=== PATIENT | female | born 1960 | race American Indian/Alaskan Native ===

== ENCOUNTER 2017-10-09 17:15 | Emergency (ER) | payer BC, OTHER ==
[2017-10-09 18:22] LABS: Hematocrit 38.5 % (30.3-42.9); Hemoglobin 12.6 gm/dl (10.1-14.3); Mean Corpuscular HGB Conc 33 % (30-34); Mean Corpuscular Hemoglobin 30 pg (28-32); Mean Corpuscular Volume 91 fl (79-97); Platelet Count 157 K/mm3 (140-440); Red Blood Count 4.23 M/mm3 (3.65-5.03); Red Cell Distribution Width 13.8 % (13.2-15.2); White Blood Count 4.5 K/mm3 (4.5-11.0)
[2017-10-09 18:36] LABS: Anion Gap 16 mmol/L; BUN/Creatinine Ratio 19; Blood Urea Nitrogen 13 mg/dL (7-17); Calcium 9.2 mg/dL (8.4-10.2); Carbon Dioxide 25 mmol/L (22-30); Chloride 103.3 mmol/L (98-107); Glucose 92 mg/dL (65-100); Sodium 140 mmol/L (137-145)
[2017-10-09 19:00] LABS: Bilirubin,Urine NEG (Negative); Blood,Urine NEG (Negative); Ketones,Urine NEG (Negative); Leukocyte Esterase,Urine NEG (Negative); Nitrite,Urine NEG (Negative); Protein,Urine <15 mg/dL mg/dL (Negative); Urobilinogen,Urine < 2.0 mg/dL (<2.0)
[2017-10-10 03:15] VITALS: BP 165/96
== END 2017-10-10 05:06 | disposition left against medical advice (07) ==
LOC: ED 17:15
DX: R42 Dizziness and giddiness (principal); Z53.21 Procedure and treatment not carried out due to patient leaving prior to being seen by health care provider
CPT/HCPCS: 36415; 80048; 81001; 84484; 85027; 93005; 93010

== ENCOUNTER 2017-10-10 09:00 | Inpatient (IN) | payer OTHER ==
[2017-10-10 10:56] LABS: Basophils % (Auto) 0.3 % (0.0-1.8); Eosinophils % (Auto) 1.9 % (0.0-4.3); Hematocrit 40.8 % (30.3-42.9); Hemoglobin 13.4 gm/dl (10.1-14.3); Mean Corpuscular HGB Conc 33 % (30-34); Mean Corpuscular Hemoglobin 31 pg (28-32); Mean Corpuscular Volume 94 fl (79-97); Platelet Count 144 K/mm3 (140-440); Red Blood Count 4.36 M/mm3 (3.65-5.03); White Blood Count 4.2 K/mm3 (4.5-11.0)
[2017-10-10 11:10] LABS: Anion Gap 18 mmol/L; BUN/Creatinine Ratio 15; Blood Urea Nitrogen 9 mg/dL (7-17); Carbon Dioxide 23 mmol/L (22-30); Chloride 105.5 mmol/L (98-107); Glucose 79 mg/dL (65-100); Potassium 3.9 mmol/L (3.6-5.0); Sodium 143 mmol/L (137-145)
[2017-10-10] MEDS ORDERED: NITRO-BID 2% TP ONE (13:27)
[2017-10-10] MEDS ORDERED: ASPIRIN PO ONE (13:28)
--- NOTE | 2017-10-10 13:53 | XRay Report ---
AP CHEST: HISTORY: chest pain AP view of the chest demonstrates a normal mediastinal and cardiac contour with clear lungs and normal bony and soft tissue structures. IMPRESSION: Unremarkable AP chest.
--- NOTE | 2017-10-10 13:57 | Emergency Department Report ---
HPI - General Chief Complaint: Chest Pain Time Seen by Provider: 10/10/17 13:11 - HPI HPI: Room 6 The patient is a 57-year-old female presented with a chief complaint of palpitations and chest discomfort. The patient states for one week she's had intermittent palpitations associated with chest discomfort, dizziness and shortness of breath. The patient states palpitations last seconds and then resolves. Patient denies nausea/vomiting or diaphoresis. Patient states she does get dizzy when the palpitations occur. Patient denies any other types of pain. Patient states her last stress test recurred one or 2 years ago but she has never had a cardiac catheterization Location: Chest Duration: Times one week Quality: Discomfort/palpitation Severity: Moderate Modifying factors: [see above] Context: [see above] Mode of transportation: [not driving] ED Past Medical Hx - Past Medical History Previous Medical History?: No - Surgical History Past Surgical History?: Yes Additional Surgical History: - Family History Family history: no significant - Social History Smoking Status: Never Smoker Substance Use Type: None (denies illicit drug use), Alcohol (occasional) ED Review of Systems ROS: Stated complaint: CHEST PAIN Other details as noted in HPI Constitutional: denies: diaphoresis Eyes: denies: eye pain ENT: denies: ear pain Respiratory: shortness of breath Cardiovascular: chest pain, palpitations Gastrointestinal: denies: abdominal pain, nausea, vomiting Genitourinary: denies: dysuria Musculoskeletal: denies: back pain Neurological: other (dizziness) Physical Exam - Physical Exam Vital Signs: Vital Signs 10/10/17 09:31 Temperature 97.9 F Pulse Rate 64 Respiratory 18 Rate Blood Pressure 150/87 O2 Sat by Pulse 100 Oximetry Physical Exam: GENERAL: The patient is well-developed well-nourished female lying on stretcher not appearing to be in acute distress. [] HEENT: Normocephalic. Atraumatic. Extraocular motions are intact. Patient has moist mucous membranes. NECK: Supple. Trachea midline CHEST/LUNGS: Clear to auscultation. There is no respiratory distress noted. HEART/CARDIOVASCULAR: Regular. There is no tachycardia. There is no gallop rub or murmur. ABDOMEN: Abdomen is soft, nontender. Patient has normal bowel sounds. There is no abdominal distention. SKIN: There is no rash. There is no edema. There is no diaphoresis. NEURO: The patient is awake, alert, and oriented. The patient is cooperative. The patient has normal speech MUSCULOSKELETAL: There is no evidence of acute injury. ED Course Vital Signs 10/10/17 09:31 Temperature 97.9 F Pulse Rate 64 Respiratory 18 Rate Blood Pressure 150/87 O2 Sat by Pulse 100 Oximetry ED Medical Decision Making - Lab Data Result diagrams: 10/10/17 10:26 10/10/17 10:26 Laboratory Tests 10/10/17 10/10/17 10:26 10:26 WBC 4.2 L RBC 4.36 Hgb 13.4 Hct 40.8 MCV 94 MCH 31 MCHC 33 RDW 14.0 Plt Count 144 Lymph % (Auto) 33.6 [place] % (Auto) 11.6 H Eos % (Auto) 1.9 Baso % (Auto) 0.3 Lymph # 1.4 [place] # 0.5 Eos # 0.1 Baso # 0.0 Seg Neutrophils % 52.6 Seg Neutrophils # 2.2 Sodium 143 Potassium 3.9 Chloride 105.5 Carbon Dioxide 23 Anion Gap 18 BUN 9 Creatinine 0.6 L Estimated GFR > 60 BUN/Creatinine Ratio 15 Glucose 79 Calcium 9.0 Troponin T < 0.010 - EKG Data -: EKG Interpreted by Me EKG shows normal: sinus rhythm Rate: normal - EKG Data When compared to previous EKG there are: no significant change Interpretation: unchanged when compared t (10/09/2017) - Radiology Data Radiology results: image reviewed (chest x-ray) interpreted by me: Chest x-ray-no focal infiltrates, no pneumothorax - Differential Diagnosis dysrhythmia, ACS, pericarditis, GERD Critical care attestation.: If time is entered above; I have spent that time in minutes in the direct care of this critically ill patient, excluding procedure time. ED Disposition Clinical Impression: Chest discomfort, Palpitations Disposition: OP ADMIT IP TO THIS HOSP Is pt being admited?: Yes Does the pt Need Aspirin: Yes Condition: Fair Referrals: PRIMARY CARE, [Primary Care Provider] - 3-5 Days Time of Disposition: 13:59 (Hospitalist notified)
--- NOTE | 2017-10-11 07:33 | History and Physical Report ---
History of Present Illness Date of examination: 10/10/17 Date of admission: 10/10/17 14:34 Chief complaint: CC Chest pain and palpitations for 2 days History of present illness: BATOOL: 57-year-old female presented with a chief complaint of palpitations and chest discomfort. The patient states for one week she's had intermittent palpitations associated with chest discomfort, dizziness and shortness of breath.Pain is non radiating .No SOB or Diaphoresis. The patient states palpitations lasts few seconds and then resolves. Patient denies nausea/ vomiting or diaphoresis. Patient states she does get dizzy when the palpitations occur. Patient denies any other types of pain. Patient states her last stress test was 2 years ago but she has never had a cardiac catheterization. No exacerbating or relieving factors Past Medical History Previous Medical History?: No Surgical History Past Surgical History?: Yes Additional Surgical History: Family History Family history: no significant Social History Smoking Status: Never Smoker Substance Use Type: None (denies illicit drug use), Alcohol (occasional) Review of Systems Stated complaint: CHEST PAIN Other details as noted in HPI Constitutional: denies: diaphoresis Eyes: denies: eye pain ENT: denies: ear pain Respiratory: shortness of breath Cardiovascular: chest pain, palpitations Gastrointestinal: denies: abdominal pain, nausea, vomiting Genitourinary: denies: dysuria Musculoskeletal: denies: back pain Neurological: other (dizziness) Medications and Allergies Allergies Allergy/AdvReac Type Severity Reaction Status Date / Time No Known Allergies Allergy Unverified 10/09/17 17:53 Home Medications Medication Instructions Recorded Confirmed Last Taken Type No Known Home Medications [No 10/10/17 10/10/17 Unknown History Reported Home Medications] Exam - Constitutional Vitals: Temp Pulse Resp BP Pulse Ox 98.2 F 64 20 131/64 99 10/11/17 06:08 10/11/17 06:08 10/11/17 06:08 10/11/17 06:08 10/11/17 06:08 General appearance: Present: no acute distress, well-nourished - EENT Eyes: Present: PERRL ENT: hearing intact, clear oral mucosa - Neck Neck: Present: supple, normal ROM - Respiratory Respiratory effort: normal Respiratory: bilateral: CTA - Cardiovascular Heart rate: 76 Rhythm: regular Heart Sounds: Present: S1 & S2. Absent: rub, click - Extremities Extremities: pulses symmetrical, No edema Peripheral Pulses: within normal limits - Abdominal General gastrointestinal: Present: soft, non-tender, non-distended, normal bowel sounds Female genitourinary: Present: normal - Rectal Rectal Exam: deferred - Integumentary Integumentary: Present: clear, warm, dry - Musculoskeletal Musculoskeletal: gait normal, strength equal bilaterally - Psychiatric Psychiatric: appropriate mood/affect, intact judgment & insight - Neurologic Neurologic: CNII-XII intact, moves all extremities - Allied Health Allied health notes reviewed: nursing, case management Results - Labs CBC & Chem 7: 10/10/17 10:26 10/10/17 10:26 Labs: Laboratory Last Values WBC 4.2 K/mm3 (4.5-11.0) L 10/10/17 10:26 RBC 4.36 M/mm3 (3.65-5.03) 10/10/17 10:26 Hgb 13.4 gm/dl (10.1-14.3) 10/10/17 10:26 Hct 40.8 % (30.3-42.9) 10/10/17 10:26 MCV 94 fl (79-97) 10/10/17 10:26 MCH 31 pg (28-32) 10/10/17 10:26 MCHC 33 % (30-34) 10/10/17 10:26 RDW 14.0 % (13.2-15.2) 10/10/17 10:26 Plt Count 144 K/mm3 (140-440) 10/10/17 10:26 Lymph % (Auto) 33.6 % (13.4-35.0) 10/10/17 10:26 [place] % (Auto) 11.6 % (0.0-7.3) H 10/10/17 10:26 Eos % (Auto) 1.9 % (0.0-4.3) 10/10/17 10:26 Baso % (Auto) 0.3 % (0.0-1.8) 10/10/17 10:26 Lymph # 1.4 K/mm3 (1.2-5.4) 10/10/17 10:26 [place] # 0.5 K/mm3 (0.0-0.8) 10/10/17 10:26 Eos # 0.1 K/mm3 (0.0-0.4) 10/10/17 10:26 Baso # 0.0 K/mm3 (0.0-0.1) 10/10/17 10:26 Seg Neutrophils % 52.6 % (40.0-70.0) 10/10/17 10:26 Seg Neutrophils # 2.2 K/mm3 (1.8-7.7) 10/10/17 10:26 Sodium 143 mmol/L (137-145) 10/10/17 10:26 Potassium 3.9 mmol/L (3.6-5.0) 10/10/17 10:26 Chloride 105.5 mmol/L (98-107) 10/10/17 10:26 Carbon Dioxide 23 mmol/L (22-30) 10/10/17 10:26 Anion Gap 18 mmol/L 10/10/17 10:26 BUN 9 mg/dL (7-17) 10/10/17 10:26 Creatinine 0.6 mg/dL (0.7-1.2) L 10/10/17 10:26 Estimated GFR > 60 ml/min 10/10/17 10:26 BUN/Creatinine Ratio 15 % 10/10/17 10:26 Glucose 79 mg/dL (65-100) 10/10/17 10:26 Calcium 9.0 mg/dL (8.4-10.2) 10/10/17 10:26 Troponin T < 0.010 ng/mL (0.00-0.029) 10/10/17 10:26 Short CBC 10/10/17 Range/Units 10:26 WBC 4.2 L (4.5-11.0) K/mm3 Hgb 13.4 (10.1-14.3) gm/dl Hct 40.8 (30.3-42.9) % Plt Count 144 (140-440) K/mm3 BMP 10/10/17 10:26 Sodium 143 Potassium 3.9 Chloride 105.5 Carbon Dioxide 23 BUN 9 Creatinine 0.6 L Glucose 79 Calcium 9.0 Cardiac Enzymes 10/10/17 Range/Units 10:26 Troponin T < 0.010 (0.00-0.029) ng/mL - Imaging and Cardiology EKG: report reviewed (NSR 70/min) Chest x-ray: report reviewed Assessment and Plan Advance Directives: Yes (Full code) VTE prophylaxis?: Chemical Plan of care discussed with patient/family: Yes - Patient Problems (1) Chest pain Current Visit: Yes Status: Acute Qualifiers: Chest pain type: unspecified Qualified Code(s): R07.9 - Chest pain, unspecified Plan to address problem: Serial cardiac enzymes and Lexiscan Diff dx of Costochondritis and Reflux esophagitis considered.No chest wall tenderness.Possible Reflux esophagitis. (2) Palpitations Current Visit: Yes Status: Acute Plan to address problem: No evidence of Arrhythmias.Telemonitor strips to be reviewed for any paroxysmal event in next 24 hrs (3) Reflux esophagitis Current Visit: Yes Status: Acute Plan to address problem: Started on ppi's (4) DVT prophylaxis Current Visit: Yes Status: Acute Plan to address problem: on lovenox
[2017-10-11] MEDS ORDERED: MILK OF MAGNESIA PO PRN (07:40)
[2017-10-11] MEDS ORDERED: TYLENOL PO PRN (07:40)
[2017-10-11] MEDS ORDERED: MORPHINE IV PRN (07:40)
[2017-10-11] MEDS ORDERED: ZOFRAN IV PRN (07:40)
[2017-10-11] MEDS ORDERED: DULCOLAX PR PRN (07:40)
[2017-10-11] MEDS ORDERED: LEXISCAN IV ONE (08:08)
[2017-10-11 08:09] LABS: Basophils % (Auto) 0.5 % (0.0-1.8); Eosinophils % (Auto) 1.1 % (0.0-4.3); Hematocrit 40.6 % (30.3-42.9); Hemoglobin 13.3 gm/dl (10.1-14.3); Mean Corpuscular HGB Conc 33 % (30-34); Mean Corpuscular Hemoglobin 30 pg (28-32); Mean Corpuscular Volume 92 fl (79-97); Platelet Count 160 K/mm3 (140-440); Red Blood Count 4.43 M/mm3 (3.65-5.03); Red Cell Distribution Width 13.8 % (13.2-15.2); White Blood Count 5.8 K/mm3 (4.5-11.0)
[2017-10-11 08:28] LABS: Alanine Aminotransferase 14 units/L (7-56); Albumin/Globulin Ratio 1.5 %; Alkaline Phosphatase 54 units/L (35-129); BUN/Creatinine Ratio 16; Blood Urea Nitrogen 11 mg/dL (7-17); Calcium 8.7 mg/dL (8.4-10.2); Carbon Dioxide 25 mmol/L (22-30); Glucose 86 mg/dL (65-100); Total Protein 6.7 g/dL (6.3-8.2)
[2017-10-11 08:29] LABS: Anion Gap 18 mmol/L; Chloride 104.3 mmol/L (98-107); Potassium 4.2 mmol/L (3.6-5.0); Sodium 143 mmol/L (137-145)
[2017-10-11 08:35] LABS: Creatine Kinase MB 1.6 ng/mL (0.0-4.0)
[2017-10-11] MEDS ORDERED: PEPCID PO SCH (10:00)
[2017-10-11] MEDS ORDERED: PROTONIX PO SCH (10:00)
[2017-10-11 10:18] VITALS: BP 149/79
--- NOTE | 2017-10-11 11:45 | Discharge Summary ---
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 ACS was ruled out by negative troponins. She went on to have a stress test that was negative for ischemia. Chest was attributed to costochondritis, and patient clinically improved. He was subsequently discharged. Discharge diagnoses Chest pain due to costochondritis Hypertension, uncontrolled Disposition: DC-01 TO HOME OR SELFCARE Time spent for discharge: 33 minutes Core Measure Documentation - Palliative Care Palliative Care/ Comfort Measures: Not Applicable - Core Measures Any of the following diagnoses?: none Exam - Constitutional Vitals: Temp Pulse Resp BP Pulse Ox 98.3 F 91 H 18 149/79 100 10/11/17 08:10 10/11/17 09:15 10/11/17 08:10 10/11/17 09:15 10/11/17 10:00 General appearance: Present: no acute distress, well-nourished - EENT Eyes: Present: PERRL ENT: hearing intact, clear oral mucosa - Neck Neck: Present: supple, normal ROM - Respiratory Respiratory effort: normal Respiratory: bilateral: CTA - Cardiovascular Heart Sounds: Present: S1 & S2. Absent: rub, click - Extremities Extremities: pulses symmetrical, No edema Peripheral Pulses: within normal limits - Abdominal General gastrointestinal: Present: soft, non-tender, non-distended, normal bowel sounds Female genitourinary: Present: normal - Integumentary Integumentary: Present: clear, warm, dry - Musculoskeletal Musculoskeletal: gait normal, strength equal bilaterally - Psychiatric Psychiatric: appropriate mood/affect, intact judgment & insight - Neurologic Neurologic: CNII-XII intact, moves all extremities Plan Follow up with: PRIMARY CARE, [Primary Care Provider] - 3-5 Days Prescriptions: amLODIPine [Norvasc] 5 mg PO QDAY #30 tablet Aspirin EC [Aspirin Enteric Coated TAB] 81 mg PO QDAY #30 tablet. Hydrochlorothiazide [HCTZ] 25 mg PO QDAY #30 tablet
[2017-10-11] MEDS ORDERED: LOVENOX SUB-Q SCH (22:00)
[2017-10-12] MEDS ORDERED: ASPIRIN PO SCH (10:00)
[2017-10-12] MEDS ORDERED: NORVASC PO SCH (10:00)
[2017-10-12] MEDS ORDERED: HCTZ PO SCH (10:00)
--- NOTE | 2017-10-12 19:37 | Treadmill Report ---
THALLIUM STRESS TEST LEFT VENTRICLE: Left ventricular chamber size is within normal. Perfusion study demonstrates homogeneous uptake of the tracer in all segments, no significant perfusion defects identified. Gated analysis demonstrates normal left ventricular systolic function, ejection fraction 73%. CONCLUSION: Normal myocardial perfusion study. JOB# [id number] CA/NTS
== END 2017-10-11 18:45 | disposition home or self-care (01) | DRG 392 ==
LOC: ED 09:00 → 4A 14:34
PROVIDERS: ADMIT Internal Medicine; ATTEND Internal Medicine
DX: K21.0 Gastro-esophageal reflux disease with esophagitis (principal); R00.2 Palpitations
CPT/HCPCS: 36415; 71010; 78452; 80048; 80053; 82550; 82553; 84484; 85025; 93005; 93010; 93017; A9502; J2785

== ENCOUNTER 2018-04-22 00:27 | Emergency (ER) | payer OTHER ==
[2018-04-22 01:27] VITALS: BP 136/80
--- NOTE | 2018-04-22 05:53 | Emergency Department Report ---
ED Fall HPI - General Chief Complaint: Fall Stated Complaint: FALL Time Seen by Provider: 04/22/18 05:48 Source: patient Mode of arrival: Ambulatory - History of Present Illness Initial Comments: 57-year-old female comes in to the emergency room from work after having a fall. Patient reports that she hit her head on the wall. She did not loss of consciousness, was no vision changes, no dizziness, no difficulty walking no memory loss. Patient reports that she took Motrin in triage which she seems has helped her head as she has no pain at this time. Patient reports that she use ice prior to arrival. She has no other concerns at this time. MD Complaint: fall -: During the night When Fall Occurred: 1 hour [employer] Fall Witnessed: yes, by living facility s Place Fall Occurred: work Loss of Consciousness: none Prolonged Down Time?: no Symptoms Prior to Fall: none Location: head Severity scale (0 -10): 0 Context: tripped/slipped (water at work) Associated Symptoms: denies - Related Data Previous Rx's Medication Instructions Recorded Last Taken Type Aspirin EC [Aspirin Enteric Coated 81 mg PO QDAY #30 tablet. 10/11/17 Unknown Rx TAB] Hydrochlorothiazide [HCTZ] 25 mg PO QDAY #30 tablet 10/11/17 Unknown Rx amLODIPine [Norvasc] 5 mg PO QDAY #30 tablet 10/11/17 Unknown Rx Allergies Allergy/AdvReac Type Severity Reaction Status Date / Time No Known Allergies Allergy Unverified 10/09/17 17:53 ED Review of Systems ROS: Stated complaint: FALL Other details as noted in HPI Eyes: denies: vision change Gastrointestinal: denies: abdominal pain, nausea, vomiting, diarrhea Neurological: denies: headache, weakness, paresthesias, abnormal gait, vertigo ED Past Medical Hx - Past Medical History Previous Medical History?: Yes Hx Hypertension: Yes Hx Congestive Heart Failure: No Hx Asthma: No - Surgical History Past Surgical History?: Yes Additional Surgical History: - Social History Smoking Status: Never Smoker Substance Use Type: None - Medications Home Medications: Home Medications Medication Instructions Recorded Confirmed Last Taken Type Aspirin EC [Aspirin Enteric Coated 81 mg PO QDAY #30 tablet. 10/11/17 Unknown Rx TAB] Hydrochlorothiazide [HCTZ] 25 mg PO QDAY #30 tablet 10/11/17 Unknown Rx amLODIPine [Norvasc] 5 mg PO QDAY #30 tablet 10/11/17 Unknown Rx ED Physical Exam - General Limitations: No Limitations General appearance: alert, in no apparent distress - Head Head exam: Present: other (mild tenderness to the right frontal) - Eye Eye exam: Present: normal appearance, PERRL, EOMI - ENT ENT exam: Present: mucous membranes moist - Neck Neck exam: Present: full ROM - Neurological Exam Neurological exam: Present: alert, oriented X3 - Expanded Neurological Exam Expanded Cranial nerves: EOM's Intact: Normal, Gag Reflex: Normal, Tongue Deviation: Normal, Nystagmus: Normal, Facial Sensation: Normal Cerebellar function: Finger to Nose: Normal, Heel to Ramirez: Normal, Romberg: Normal Upper motor neuron: Wyatt Neglect: Normal, Pronator Drift: Normal, Babinski Sign : Normal, Sensory Extinction: Normal Sensory exam: Upper Extremity Light Touch: Normal, Upper Extremity Pin Prick: Normal, Upper Extremity Temperature: Normal, UE 2 Point Discrimination: Normal, Lower Extremity Light Touch: Normal, Lower Extremity Pin Prick: Normal Motor strength exam: RUE: 4, LUE: 4, RLE: 4, LLE: 4 Best Eye Response ([place]): (4) open spontaneously Best Motor Response ([place]): (6) obeys commands Best Verbal Response ([place]): (5) oriented [place] Total: 15 - Psychiatric Psychiatric exam: Present: normal affect, normal mood - Skin Skin exam: Present: warm, dry, intact, normal color. Absent: rash ED Course Vital Signs 04/22/18 01:24 Temperature 98.1 F Pulse Rate 80 Respiratory 12 Rate Blood Pressure 136/80 O2 Sat by Pulse 100 Oximetry ED Medical Decision Making - Medical Decision Making Patient has been evaluated by this provider in fast track. Patient discussion was a witnessed fall. Denies any pain at this time, normal neuro exam. No step-off on the scalp. Discussed the patient she can take [id number] Tylenol or Motrin if she starts to have any pain. Discussed the patient she starts to have any dizziness nausea vomiting change in vision altered mental status or trouble ambulating to please return to the emergency room immediately. Patient verbalized understanding Critical care attestation.: If time is entered above; I have spent that time in minutes in the direct care of this critically ill patient, excluding procedure time. ED Disposition Clinical Impression: Minor head trauma Fall Qualifiers: Encounter type: initial encounter Qualified Code(s): W19.XXXA - Unspecified fall, initial encounter Disposition: DC-01 TO HOME OR SELFCARE Is pt being admited?: No Does the pt Need Aspirin: No Condition: Stable Instructions: Minor Head Injury (ED), Fall Prevention (ED) Additional Instructions: You can take Tylenol or Motrin for any pain to develop. If any symptoms start such as vomiting nausea change in vision, unsteady gait or worse headache of her life please return back to the emergency room immediately. Referrals: PRIMARY CARE,MD [Primary Care Provider] - 3-5 Days your,provider [Other] - 3-5 Days Forms: Work/School Release Form(ED)
== END 2018-04-22 06:00 | disposition home or self-care (01) ==
LOC: ED 00:27
DX: S09.90XA Unspecified injury of head, initial encounter (principal); I10 Essential (primary) hypertension; W01.0XXA Fall on same level from slipping, tripping and stumbling without subsequent striking against object, initial encounter; Y93.89 Activity, other specified; Y99.0 Civilian activity done for income or pay; Y92.69 Other specified industrial and construction area as the place of occurrence of the external cause
CPT/HCPCS: 99282